=== PATIENT | male | born 1995 | race Two or more races ===

== ENCOUNTER 2022-06-07 07:10 | Emergency (ER) | payer SELFPAY ==
[~2022-06-07] VITALS: Ht 180.3 cm; Wt 110.0 kg
[2022-06-07 07:56] LABS: Urine Bacteria NONE SEEN /hpf (None Seen); Urine Blood Negative /uL (Negative); Urine Specific Gravity 1.026 (1.001-1.035); Urine WBC 3 /hpf (0 - 3)
[2022-06-07] MEDS ORDERED: CYCL-837 PO (07:58)
[2022-06-07] MEDS ORDERED: IBUP800T27 PO (07:58)
[2022-06-07] MEDS ORDERED: SULF800T7 PO (08:00)
[2022-06-07 08:02] VITALS: BP 144/93
[2022-06-07] MEDS ORDERED: KETOROLAC TROMETH 60MG/2ML VIAL IM ONE (08:15)
== END 2022-06-07 08:39 | disposition home or self-care (01) ==
LOC: ER 07:10
DX: N39.0 Urinary tract infection, site not specified (principal); M54.32 Sciatica, left side; M54.31 Sciatica, right side; Z88.0 Allergy status to penicillin
CPT/HCPCS: 81001; 96372; 99283; J1885

== ENCOUNTER 2023-04-19 02:06 | Emergency (ER) | payer OTHER ==
[~2023-04-19] VITALS: Ht 180.3 cm; Wt 113.0 kg
[~2023-04-19 02:06] MED LIST: CYCL-837 PO; IBUP-1456 PO; SULF800T23 PO
[2023-04-19 02:43] LABS: Basophils # (auto) 0.1 10 ^3/uL (0-0.2); Basophils % (auto) 1.2 % (0.0-2.0); Eosinophils # (auto) 0.4 10 ^3/uL (0-0.8); Eosinophils % (auto) 4.1 % (0.0-7.0); Hematocrit 43.3 % (41.0-53.0); Hemoglobin 14.9 g/dL (13.5-17.5); Lymphocytes % (auto) 42.6 % (10.0-50.0); Mean Corpuscular Hemoglobin 31.5 pg (28.0-32.0); Mean Corpuscular Hgb Conc. 34.3 g/dL (32.0-36.0); Mean Corpuscular Volume 91.9 fL (80.0-100.0); Monocytes # (auto) 0.6 10 ^3/uL (0-1.3); Monocytes % (auto) 6.7 % (0.0-12.0); Neutrophils # (auto) 4.2 10 ^3/uL (1.6-8.6); Neutrophils % (auto) 45.4 % (37.0-80.0); Nucleated Red Blood Cells % 0.2 %; Red Blood Cells 4.72 10^6/uL (4.5-5.90); Red Cell Distribution Width 12.9 % (11.8-14.3); White Blood Cell 9.3 10^3/uL (4.4-10.8)
[2023-04-19 02:49] LABS: INR 0.98 (0.9-1.15); Partial Thromboplastin Time 26.6 SEC (24.5-34.5)
[2023-04-19 02:51] LABS: Albumin 4.1 g/dL (3.4-5.0); BUN/Creatinine Ratio 14.6 (10.0-20.0); Calcium 8.9 mg/dL (8.5-10.1); Magnesium 2.4 mg/dL (1.6-2.6); Potassium 3.9 mmol/L (3.5-5.1)
[2023-04-19 02:54] LABS: Bilirubin, Total 0.2 mg/dL (0.2-1.0); Total Protein 7.8 g/dL (6.4-8.2)
[2023-04-19 05:21] VITALS: BP 114/69
== END 2023-04-19 05:23 | disposition home or self-care (01) ==
LOC: ER 02:06
DX: R07.89 Other chest pain (principal); F41.9 Anxiety disorder, unspecified; F32.9 Major depressive disorder, single episode, unspecified; Z79.899 Other long term (current) drug therapy; Z88.0 Allergy status to penicillin
CPT/HCPCS: 36415; 71045; 80053; 83735; 83880; 84484; 85025; 85610; 85730; 93005

== ENCOUNTER 2023-11-27 08:46 | Emergency (ER) | payer SELFPAY ==
[~2023-11-27] VITALS: Ht 180.3 cm; Wt 124.0 kg
[2023-11-27 09:06] LABS: Basophils # (auto) 0.1 10 ^3/uL (0-0.2); Basophils % (auto) 1.2 % (0.0-2.0); Eosinophils # (auto) 0.5 10 ^3/uL (0-0.8); Eosinophils % (auto) 6.4 % (0.0-7.0); Hemoglobin 15.7 g/dL (13.5-17.5); Lymphocytes # (auto) 3.5 10 ^3/uL (0.4-5.4); Lymphocytes % (auto) 41.1 % (10.0-50.0); Mean Corpuscular Hemoglobin 31.4 pg (28.0-32.0); Mean Corpuscular Hgb Conc. 34.1 g/dL (32.0-36.0); Mean Corpuscular Volume 92.3 fL (80.0-100.0); Monocytes # (auto) 0.6 10 ^3/uL (0-1.3); Monocytes % (auto) 6.6 % (0.0-12.0); Neutrophils # (auto) 3.8 10 ^3/uL (1.6-8.6); Neutrophils % (auto) 44.7 % (37.0-80.0); Nucleated Red Blood Cells % 0.1 %; Red Blood Cells 4.98 10^6/uL (4.5-5.90); Red Cell Distribution Width 13.1 % (11.8-14.3); White Blood Cell 8.5 10^3/uL (4.4-10.8)
[2023-11-27 09:26] LABS: Alanine Aminotransferase 76 U/L (7-40); Albumin 4.8 g/dL (3.2-4.8); Alkaline Phosphatase 77 U/L (46-116); Anion Gap 7 (5-15); Aspartate Aminotransferase 43 U/L (13-40); BUN/Creatinine Ratio 17.9 (10.0-20.0); Bilirubin, Total 0.5 mg/dL (0.2-1.0); Blood Urea Nitrogen 14 mg/dL (9-23); Calcium 9.5 mg/dL (8.5-10.1); Carbon Dioxide 30 mmol/L (20-30); Chloride 106 mmol/L (98-107); Glucose 102 mg/dL (74-106); Potassium 4.3 mmol/L (3.5-5.1); Sodium 143 mmol/L (136-145); Total Protein 7.1 g/dL (5.7-8.2)
[2023-11-27 10:03] LABS: Urine Bacteria NONE SEEN /hpf (None Seen); Urine Blood Negative /uL (Negative); Urine Clarity Clear (Clear); Urine Color Yellow (Yellow); Urine Hyaline Cast FEW /lpf (0 - 2); Urine Mucus FEW (None Seen); Urine Protein, UAD TRACE (Negative); Urine Specific Gravity 1.032 (1.001-1.035); Urine WBC 1 /hpf (0 - 3)
[2023-11-27] MEDS ORDERED: IBU600T PO (11:37)
[2023-11-27 11:45] VITALS: BP 133/85; PULSE 87; RESP 18; O2SAT 96
== END 2023-11-27 11:47 | disposition home or self-care (01) ==
LOC: ER 08:46
DX: R09.1 Pleurisy (principal); F41.9 Anxiety disorder, unspecified; F32.9 Major depressive disorder, single episode, unspecified; Z88.8 Allergy status to other drugs, medicaments and biological substances; Z79.899 Other long term (current) drug therapy
CPT/HCPCS: 36415; 71046; 80053; 81001; 84484; 85025; 93005